=== PATIENT | male | born 1945 | race Caucasian/White ===

== ENCOUNTER 2017-01-16 13:14 | Inpatient (IN) | payer MEDICARE ==
[~2017-01-16] VITALS: Ht 172.7 cm; Wt 94.4 kg
[~2017-01-16 13:14] MED LIST: ACET650T26 PO; AMOX1TAB61 PO; CLIN300C8 PO; DIGO125T PO; GLIP-112 PO; GLIP10TA13 PO; HYDR25TA9 PO; IBUP400T18 PO; LISI40TA PO; METF10002 PO; METO50TA29 PO; NAPR220C4 PO; OXYC-327 PO; SIMV40TA3 PO; SITA25TA PO; SITA50TA PO; Sennosides/Docusate Sodium PO
[2017-01-16] MEDS ORDERED: LOSA100T6 PO (14:04)
[2017-01-16] MEDS ORDERED: ATOR20TA58 PO (14:05)
[2017-01-16] MEDS ORDERED: AMLO10TA2 PO (14:06)
[2017-01-16] MEDS ORDERED: CHOL100013 PO (14:06)
[2017-01-16] MEDS ORDERED: METO25TA4 PO (14:07)
[2017-01-16] MEDS ORDERED: FURO40TA4 PO (14:08)
[2017-01-16] MEDS ORDERED: POTA10TA10 PO (14:09)
[2017-01-16 14:21] VITALS: BP 154/65
[2017-01-16 14:48] VITALS: BP 154/65
[2017-01-16 16:19] LABS: HEMATOCRIT 34.2 % (39.0-53.0); HEMOGLOBIN 11.4 g/dL (13.0-17.5); RED BLOOD COUNT 3.7 x10^6/uL (4.30-5.70); RED CELL DISTRIBUTION WIDTH 14.9 % (11.5-14.5); WHITE BLOOD COUNT 7.1 x10^3/uL (4.0-11.0)
[2017-01-16 16:37] LABS: ALBUMIN 2.4 g/dL (3.4-5.0); ALBUMIN/GLOBULIN RATIO 0.6 (1.0-1.7); CALCIUM 8.6 mg/dL (8.5-10.1); CREATININE 1.5 mg/dL (0.7-1.3); GFR 46.3; POTASSIUM 4.4 mmol/L (3.5-5.1); TOTAL BILIRUBIN 0.4 mg/dL (0.2-1.0); TOTAL PROTEIN 6.1 g/dL (6.4-8.2)
[2017-01-16] MEDS ORDERED: VANCOMYCIN 2 GM in IV NORMAL SALINE 500ML 500 ML IV ONE (17:00)
[2017-01-16] MEDS: VANCOMYCIN PER PHARMACY MC PRN (17:39)
[2017-01-16] MEDS ORDERED: IOHEXOL 300 MG/ML 75 ML VIAL. IV ONE (18:15)
--- NOTE | 2017-01-16 19:11 | HP ---
ADMIT DATE: 01/16/2017 HISTORY OF PRESENT ILLNESS: The patient is a 71-year-old male patient who was admitted directly from his primary care physician's office with a complaint of pain and swelling of his right lower extremity. Pain is mostly in the posterior aspect of the right thigh and right knee, also complained of pain in his right knee joint, and given that he has had previous history of cellulitis and right knee infection, he was admitted and after obtaining appropriate cultures, we will start him on IV antibiotic. We will also arrange for him to have a CT scan of the right lower extremity and venous Doppler ultrasound to rule out the possibility of right lower extremity deep vein thrombosis. The patient himself denied any chills, rigors or fever. He has chronic bilateral venous stasis ulcers, but according to him, they are actually much better than before. PAST MEDICAL HISTORY: Significant for hypertension, type 2 diabetes, hyperlipidemia, chronic kidney disease, impaired liver enzymes, osteoarthritis, coronary artery disease. PAST SURGICAL HISTORY: Significant for coronary artery bypass graft surgery, right knee arthroscopic surgery x 2, right eye surgery x 4 with cataract extraction and intraocular lens implant. He has bilateral craniotomy with the evacuation of subdural hematoma, cholecystectomy, colonoscopy, and cystoscopy for investigation of hematuria. ALLERGIES: He is allergic to PENICILLIN. MEDICATIONS: He is currently on following medications: Acetaminophen 650 mg every 8 hours, amlodipine besylate 10 mg daily, atorvastatin calcium 20 mg at bedtime, cholecalciferol/vitamin D3 1000 International Units daily, furosemide 40 mg p.o. daily, glipizide 10 mg b.i.d., losartan potassium 100 mg daily, metoprolol tartrate 25 mg twice a day and potassium chloride 10 mEq once a day. FAMILY HISTORY: He has one older sister who is healthy. His father was killed. His mother at the age of 88 because of myocardial infarction. SOCIAL HISTORY: He is , has 2 sons and 1 daughter. He is an ex-smoker, quit about 4 years ago, smoked for more than 30 years, a pack a day. He drinks 2 drinks of alcohol every Sunday night. He used to work for [employer] for more than 30 years. He is currently retired. REVIEW OF SYSTEMS: The patient denied any blurring of vision, cataract, glaucoma or macular degeneration. Denied any earache, tinnitus or sensorineural deafness. Denied any nosebleeds, stuffy nose or postnasal drip. Denied any sore throat, sore tongue, toothache, hoarseness of voice or difficulty swallowing. Denied any nausea, vomiting, diarrhea or constipation. Denied any hematemesis, melena or hematochezia. Denied any dysuria, frequency or hematuria. Denied any chest pain, shortness of breath, orthopnea, paroxysmal nocturnal dyspnea. Denied any cough, phlegm or hemoptysis. Did complain of chills, but no fever, PHYSICAL EXAMINATION: GENERAL: When I examined him, he was sitting slightly propped up in bed, in no apparent respiratory distress, pale, but no jaundice, cyanosis or thyromegaly. No jugular venous distention. No lower limb edema. VITAL SIGNS: His heart rate was 68, blood pressure 154/65, temperature was 98.5, respiratory rate 20, and oxygen saturation was 97%. HEAD, EYES, EARS, NOSE AND THROAT: Showed normocephalic, atraumatic. NECK: Supple. HEART: Showed normal first and second heart sounds with no gallop, rub or murmur. CHEST: Clear to auscultation. No crepitation or rhonchi. ABDOMEN: Distended, soft, nontender. No guarding or rigidity. No organomegaly. Hernial orifices intact. Bowel sounds normal. NEUROLOGIC: He was awake, alert, responding appropriately. All cranial nerves intact. EXTREMITIES: He moves extremities without difficulty; however, he has chronic bilateral venous stasis on both sides. His right lower extremity is more swollen. He has marked tenderness in the posterior aspect of the right thigh and right knee joint with also marked tenderness and possible right knee effusion. PLAN: Admit the patient with right lower extremity possible cellulitis or an infected right knee joint as he has a history of that before. We will do blood cultures and as he is allergic to PENICILLIN, we will start him on vancomycin and meropenem and the pharmacy will adjust the dose as he is known to have chronic kidney disease. I will send blood for CBC, CMP, 2 sets of blood culture. We will do right lower extremity venous Doppler ultrasound as well as CT scan of the right lower extremity. Obviously, he has an abscess or infected right knee joint that needs to be drained. I will transfer him to [facility]. RJ GONG MD DR: Lia JOB#: [id number] / [id number]
[2017-01-16 19:52] VITALS: BP 177/66
[2017-01-16] MEDS ORDERED: IV NORMAL SALINE 100ML 100 ML ONE (20:13)
[2017-01-16] MEDS: ACETAMINOPHEN 325 MG TABLET PO PRN (20:43)
[2017-01-16] MEDS: ATORVASTATIN CALCIUM 20 MG TABLET PO SCH (20:43)
[2017-01-16] MEDS: glipiZIDE 10 MG TABLET PO SCH (20:43)
[2017-01-16] MEDS: METOPROLOL TART IMMED RELEASE 25 MG TABLET PO SCH (20:44)
[2017-01-16] MEDS: MEROPENEM 1 GM in IV NORMAL SALINE 100ML 100 ML IV SCH (21:00)
[2017-01-16 22:48] VITALS: BP 177/63
--- NOTE | 2017-01-16 23:50 | RAD ---
CT right lower extremity with contrast dated 01/16/2017. No comparison available. CLINICAL INDICATION: Edema and pain right leg laterally from mid thigh to above ankle. Drainage and skin sluffling. TECHNIQUE: Contiguous axial imaging of the right lower extremity performed following the intravenous administration of 60 cc Omnipaque 300. Thin cut coronal and sagittal reconstructions. One or more of the following individualized dose reduction techniques were utilized for this examination: 1. Automated exposure control 2. Adjustment of the mA and/or kV according to patient size 3. Use of iterative reconstruction technique. FINDINGS: There is extensive edema throughout the subcutaneous tissues of the mid to distal thigh and right calf. No soft tissue gas or well-formed fluid collection to suggest abscess. There is diffuse skin thickening. There is extensive calcific and soft plaque throughout the right lower extremity arterial tree. Evaluation for stenosis is limited based on technique. The common femoral artery is not well opacified and may be moderately narrowed. There is multifocal mild to moderate narrowing of the superficial femoral artery with possible high-grade stenosis distally near the adductor hiatus. No significant flow identified within the visualized calf arteries, could be artifactual or related to high-grade stenosis. There are extensive venous varicosities throughout the medial thigh and calf. There is generalized muscle atrophy. Small intramuscular lipoma involving the vastus intermedius muscle proximally. No acute bony abnormality. Mild to moderate tricompartmental DJD at the knee. IMPRESSION: 1. Extensive subcutaneous edema and parasagittal edema with skin thickening, nonspecific. This could be related to cellulitis. There is no evidence of underlying soft tissue gas or abscess. 2. Atherosclerotic changes of the right lower extremity arterial tree. Evaluation for stenosis is limited based on technique. There is no detectable flow within the calf arteries which could be technical or related to high-grade stenosis. Recommend correlation with ultrasound Doppler. 3. No acute bony abnormality. 4. Prominent venous varicosities Electronically signed by: Emmanuel Camacho MD (01/16/2017 11:47 PM) [facility]
[2017-01-17] MEDS ORDERED: IV NORMAL SALINE 100ML 100 ML ONE (04:22)
[2017-01-17] MEDS: MEROPENEM 1 GM in IV NORMAL SALINE 100ML 100 ML IV SCH ×3 (05:22→21:02)
[2017-01-17] MEDS: ACETAMINOPHEN 325 MG TABLET PO PRN ×2 (05:43→21:01)
[2017-01-17 06:03] VITALS: BP 158/77
[2017-01-17 06:23] LABS: BASO % 0 % (0-3); EOS # 0.1 x10^3/uL (0.0-0.7); EOS % 2 % (0-3); HEMATOCRIT 31.2 % (39.0-53.0); HEMOGLOBIN 10.4 g/dL (13.0-17.5); LYMPH # 0.6 x10^3/uL (1.0-4.8); LYMPH % 10 % (24-48); MEAN CORPUSCULAR HEMOGLOBIN 31 pg (25-35); MEAN CORPUSCULAR HGB CONC 33 g/dL (31-37); MEAN CORPUSCULAR VOLUME 92 fL (79-100); MONO # 0.4 x10^3/uL (0.0-1.1); MONO % 6 % (0-9); NEUT # 4.8 x10^3uL (1.8-7.7); NEUT % 82 % (31-73); PLATELET COUNT 156 x10^3/uL (140-400); RED BLOOD COUNT 3.39 x10^6/uL (4.30-5.70); WHITE BLOOD COUNT 5.8 x10^3/uL (4.0-11.0)
[2017-01-17 06:41] LABS: ALBUMIN 2.2 g/dL (3.4-5.0); ALBUMIN/GLOBULIN RATIO 0.6 (1.0-1.7); C REACTIVE PROTEIN 97.2 mg/L (0-3.3); CALCIUM 8.2 mg/dL (8.5-10.1); CREATININE 1.4 mg/dL (0.7-1.3); GFR 50.1; POTASSIUM 4.3 mmol/L (3.5-5.1); TOTAL BILIRUBIN 0.4 mg/dL (0.2-1.0); TOTAL PROTEIN 5.8 g/dL (6.4-8.2)
--- NOTE | 2017-01-17 07:19 | RAD ---
Right lower extremity venous ultrasound, 01/16/2017 : History: Right leg swelling Duplex evaluation including grayscale, color flow and spectral Doppler analysis was performed. The femoral and popliteal veins show no filling defects to suggest DVT. The visualized deep veins in the right calf are unremarkable. Incidental note is made of moderate subcutaneous edema, most prominent laterally in the thigh, extending into the calf. IMPRESSION: There is no sonographic evidence of deep vein thrombosis in the right lower extremity
[2017-01-17 08:10] LABS: SEDIMENTATION RATE 67 (0-15)
[2017-01-17] MEDS: glipiZIDE 10 MG TABLET PO SCH ×2 (08:51→21:01)
[2017-01-17] MEDS: CHOLECALCIFEROL (VITAMIN D3) 1,000 UNIT TABLET PO SCH (08:51)
[2017-01-17] MEDS: FUROSEMIDE 40 MG TABLET PO SCH (08:51)
[2017-01-17] MEDS: amLODIPine BESYLATE 10 MG TABLET PO SCH (08:52)
[2017-01-17] MEDS: METOPROLOL TART IMMED RELEASE 25 MG TABLET PO SCH ×2 (08:53→21:00)
[2017-01-17] MEDS: LOSARTAN 50 MG TABLET. PO SCH (08:53)
[2017-01-17] MEDS: POTASSIUM CHLORIDE 10 MEQ TABLET.ER. PO SCH ×2 (08:54→17:13)
[2017-01-17 10:12] VITALS: BP 161/61
[2017-01-17] MEDS: VANCOMYCIN 1.5 GM in IV NORMAL SALINE 500ML 500 ML IV SCH (17:14)
[2017-01-17 17:46] VITALS: BP 169/62
[2017-01-17 20:59] VITALS: BP 164/84
[2017-01-17] MEDS: ATORVASTATIN CALCIUM 20 MG TABLET PO SCH (21:01)
[2017-01-17 22:52] VITALS: BP 154/84
--- NOTE | 2017-01-18 04:09 | PN ---
DATE: 01/17/2017 SUBJECTIVE: The patient is resting, slightly propped up in bed, in no apparent respiratory distress. He denied any chills, rigors or fever. He continued to have pain, swelling, tenderness in the posterior aspect of the right thigh and posterior aspect of the right knee. We did venous Doppler ultrasound of his right lower extremity, which showed no sonographic evidence of deep vein thrombosis. CT scan of the right lower extremity showed that his extensive subcutaneous edema and edema with skin thickening is nonspecific. This could be related to cellulitis. There is no evidence of underlying soft tissue gas or abscess. Atherosclerotic changes of the right lower extremity, arterial tree evaluation for stenosis is limited based on technique. There is no detectable flow within the calf arteries, which could be technical or related to high-grade stenosis, recommended correlation with ultrasound Doppler. There is no acute bony abnormalities. He has prominent venous varicosities. PHYSICAL EXAMINATION: GENERAL: When I examined him this afternoon, he looked well and was clearly in no apparent respiratory distress, pale, but no jaundice, cyanosis, or thyromegaly. No jugular distention, but bilateral lower limb edema, more so on the right side. VITAL SIGNS: His heart rate was 69, blood pressure 161/61, temperature was 98, respiratory rate 20, and oxygen saturation was 93%. HEAD, EYES, EARS, NOSE AND THROAT: Showed normocephalic, atraumatic. NECK: Supple. HEART: Showed normal first and second heart sounds with no gallop, rub or murmur. CHEST: Shows central trachea, equal bilateral chest expansion, air entry, vesicular sounds, no crepitation or rhonchi. ABDOMEN: Distended, soft, nontender. No guarding or rigidity. No organomegaly. Hernial orifices intact. Bowel sounds normal. NEUROLOGIC: He was awake, alert, responding appropriately. Cranial nerves intact. He moves extremities without difficulty, ambulates without assistance or assistive devices. EXTREMITIES: Examination of both lower extremities shows marked erythema and chronic venous stasis. The right leg continued to be more swollen with marked tenderness and swelling, induration in posterior aspect of the right thigh and posterior aspect of the right knee joint and calf muscles. His intake over the last 24 hours was 3250, output was 400. LABORATORY DATA: Showed a white cell count 5800, hemoglobin 10.4, hematocrit 31, MCV 92, and platelet count of 156,000 with normal manual differential. Serum sodium was 140, potassium 4.3, chloride 110, bicarbonate 26, anion gap of 4, BUN 25, creatinine 1.4. Estimated GFR was 50 mL per minute. His glucose 137. Calcium was 8.2. Total bilirubin is normal. AST, ALT, alkaline phosphatase were normal. His sed rate was 67 mL per hour and C-reactive protein was 97.2 mg/dL. His total protein was 5.8, albumin 2.2. ASSESSMENT: In summary, this is a 71-year-old male patient with 1. Right lower extremity cellulitis. 2. Chronic venous stasis. 3. Chronic kidney disease. 4. Hypertension, seems to be reasonably controlled. 5. Type 2 diabetes mellitus. 6. Impaired liver enzymes. 7. Osteoarthritis. 8. Coronary artery disease. 9. Peripheral arterial disease. PLAN: My plan is to continue with IV antibiotic in the form of vancomycin as well as meropenem. I will arrange for him to have arterial Doppler ultrasound of the right lower extremity and decide on further management accordingly. RJ GONG MD DR: AIDAN/jaime JOB#: [id number] / [id number]
[2017-01-18] MEDS ORDERED: IBUPROFEN 600 MG TABLET. PO PRN (05:30)
[2017-01-18] MEDS: MEROPENEM 1 GM in IV NORMAL SALINE 100ML 100 ML IV SCH ×2 (05:40→14:00)
[2017-01-18 05:52] VITALS: BP 159/77
[2017-01-18] MEDS ORDERED: IV NORMAL SALINE 250ML 250 ML ONE ×2 (06:02→13:49)
[2017-01-18 06:42] LABS: CALCIUM 8.3 mg/dL (8.5-10.1); CREATININE 1.1 mg/dL (0.7-1.3); GFR 66.2; POTASSIUM 4.2 mmol/L (3.5-5.1)
[2017-01-18] MEDS: FUROSEMIDE 40 MG TABLET PO SCH (08:06)
[2017-01-18] MEDS: POTASSIUM CHLORIDE 10 MEQ TABLET.ER. PO SCH ×2 (08:06→17:00)
[2017-01-18] MEDS: LOSARTAN 50 MG TABLET. PO SCH (08:07)
[2017-01-18] MEDS: amLODIPine BESYLATE 10 MG TABLET PO SCH (08:07)
[2017-01-18] MEDS: CHOLECALCIFEROL (VITAMIN D3) 1,000 UNIT TABLET PO SCH (08:07)
[2017-01-18] MEDS: METOPROLOL TART IMMED RELEASE 25 MG TABLET PO SCH (08:07)
[2017-01-18] MEDS: glipiZIDE 10 MG TABLET PO SCH (08:07)
--- NOTE | 2017-01-18 09:19 | RAD ---
Examination: Ultrasound right lower extremity arterial duplex History: History of calcified arteries, atherosclerosis, diabetes, hypertension, prior history of smoking Comparison: None available Technique: Grayscale, color Doppler 2-D, spectral waveform analysis of the right lower extremity arterial system was performed. Findings: The velocity in the common femoral artery is 122 cm/s, triphasic waveform. Deep femoral artery 85 cm/s, biphasic. Proximal superficial femoral artery 128 cm/s, triphasic. Mid superficial femoral artery 159 cm/s, triphasic. Distal superficial femoral artery 176 cm/s, triphasic. Popliteal artery-4 cm/s, triphasic. Proximal [employer] 72 cm/s, monophasic. Distal [employer] 54 cm/s, biphasic. Peroneal artery was difficult to visualize. Anterior tibialis artery is 62 cm/s biphasic. Dorsalis pedis artery 62 cm/s, biphasic. Examination was technically difficult given swelling in the lower leg. Diffuse atherosclerotic plaque identified throughout the visualized right lower extremity arterial system. Impression: Diffuse atherosclerosis of the visualized right lower extremity arterial system without obvious high-grade stenosis visualized. Examination is limited.
[2017-01-18 11:01] VITALS: BP 167/76
[2017-01-18] MEDS ORDERED: CEFD300C PO (14:50)
[2017-01-18 16:05] VITALS: BP 168/76
[2017-01-18 16:30] LABS: VANC TR 13.3 mcg/mL (10.0-20.0)
[2017-01-18] MEDS: VANCOMYCIN 1.5 GM in IV NORMAL SALINE 500ML 500 ML IV SCH (16:55)
[2017-01-18] MEDS: VANCOMYCIN PER PHARMACY MC PRN (17:09)
--- NOTE | 2017-01-18 22:08 | DS ---
DATE OF DISCHARGE: 01/18/2017 HOSPITAL COURSE: The patient is a 71-year-old male patient who was admitted directly from his primary care physician's office with a complaint of pain and swelling of his right lower extremity. The pain is mostly in the posterior and outer aspect of the right thigh and right knee joint. He complained also of pain in his right knee joint and was admitted with diagnosis of cellulitis. Has had a Doppler ultrasound, which was negative for DVT and CT scan of the right lower extremity showed soft tissue swelling, but no definite abscess. He was started on IV meropenem and vancomycin and did well and has been afebrile, hemodynamically stable, normal white cell count. His blood cultures have remained so far negative and in discussion with Dr. Rainey, a decision was made to discharge him home to continue on oral Omnicef, for cefdinir 300 mg twice a day for 10 days and for him to follow with the Infectious Disease group either Dr. Lyons or Dr. Rainey in 1 week's time. PHYSICAL EXAMINATION: GENERAL: When I examined him this afternoon, he looked well and was clearly in no apparent respiratory distress, pale, but no jaundice, cyanosis, or thyromegaly. No jugular distention, but mild bilateral limb edema, which improved. VITAL SIGNS: Her heart rate was 59, blood pressure was 167/76, temperature was 98, respiratory rate was 20, and oxygen saturation was 93%. HEAD, EYES, EARS, NOSE AND THROAT: Showed normocephalic, atraumatic. NECK: Supple. HEART: Showed normal first and second heart sounds with no gallop, rub or murmur. CHEST: Clear to auscultation. No crepitation or rhonchi. ABDOMEN: Distended, soft, nontender. NEUROLOGIC: He was awake, alert, responding appropriately. Cranial nerves intact. He moves extremities without difficulty, ambulates without assistance or assistive devices. He has chronic venous stasis on both sides, more so on the right. There was also redness and swelling and tenderness especially on the outer posterior aspect of the right thigh that has largely subsided. Venous Doppler ultrasound was negative for DVT and CT scan of the right lower extremity showed no evidence of abscess formation and did show extensive subcutaneous edema and parasagittal edema with skin thickening that is nonspecific. This could be related to cellulitis. There is no evidence of underlying soft tissue gas or abscess. LABORATORY DATA: His lab work this morning showed that his white cell count was 5800, hemoglobin 10, hematocrit 31, MCV 92, and platelet count 156,000. Serum sodium was 141, potassium 4.2, chloride 109, bicarbonate 25, anion gap of 7, BUN 19, creatinine 1.1, estimated GFR was 66 mL per minute. His glucose was 150. Calcium was 8.3. Total bilirubin is normal; however, AST, ALT, alkaline phosphatase are all elevated. His white cell count was 5800. His total protein was 5.8, albumin was 2.2. DISCHARGE MEDICATIONS: He was discharged home to continue on following medications: Cefdinir 300 mg p.o. b.i.d. for 10 days, acetaminophen 650 mg p.o. 8 hourly, amlodipine 10 mg once a day, atorvastatin 20 mg at bedtime, cholecalciferol, vitamin D 1000 units 1 capsule once a day, furosemide 40 mg daily, glipizide 10 mg twice a day, losartan potassium 100 mg daily, metoprolol tartrate 25 mg daily, potassium chloride 10 mEq twice a day. FINAL DISCHARGE DIAGNOSES: 1. Cellulitis of right lower extremity. 2. Acute kidney injury, resolved. His creatinine is down to 1.1 from 1.5. 3. Other medical problems including hypertension, type 2 diabetes mellitus, hyperlipidemia, chronic kidney disease, impaired liver enzymes, osteoarthritis, coronary artery disease, severe peripheral vascular disease. RJ GONG MD DR: AIDAN/jaime JOB#: [id number] / [id number]
--- NOTE | 2017-01-19 04:51 | PN ---
DATE: 01/18/2017 SUBJECTIVE: The patient is resting slightly propped up in bed, in no apparent distress. He continued to complain of some pain on the outer aspect of the right thigh, although the modest swelling and redness has largely subsided. PHYSICAL EXAMINATION: GENERAL: When I examined him, he looked pale, but no jaundice, cyanosis or thyromegaly. No jugular distention. No lower limb edema. VITAL SIGNS: His heart rate was 59, blood pressure was 167/76, temperature was 98, respiratory rate was 20, and oxygen saturation was 93% on room air. HEAD, EYES, EARS, NOSE AND THROAT: Showed normocephalic, atraumatic. NECK: Supple. HEART: Showed normal first and second heart sounds with no gallop, rub or murmur. CHEST: Clear to auscultation. No crepitation or rhonchi. ABDOMEN: Distended, soft, nontender. No guarding or rigidity. No organomegaly. Hernial orifices intact. Bowel sounds normal. NEUROLOGIC: He was awake, alert, responding appropriately. Cranial nerves intact. He moves extremities without difficulty. He ambulates without assistance of assistive devices. The swelling and erythema of his right lower extremity has largely subsided, although he continued to have some tenderness and induration on the outer aspect of the right thigh. His intake was 2370, output was 700. LABORATORY DATA: His lab work this morning showed a white cell count 5800, hemoglobin 10, hematocrit 31, MCV 92, and platelet count of 156,000. His chemistry showed a serum sodium 141, potassium 4.2, chloride 109, bicarbonate 25, anion gap of 7, BUN 19, creatinine 1.1, estimated GFR was 66 mL per minute, his glucose 150, calcium was 8.3. ASSESSMENT: 1. Right lower extremity cellulitis, resolving. 2. Chronic bilateral venous stasis. 3. Chronic kidney disease. 4. Acute kidney injury, resolving. His BUN and creatinine is down to 19 and 1.1 from 32 and 1.5. 5. Hypertension, reasonably controlled. 6. Type 2 diabetes mellitus, reasonably controlled. 7. Chronic transaminitis. 8. Osteoarthritis. 9. Coronary artery disease. 10. Peripheral arterial disease. PLAN: To continue with IV antibiotic. We will discharge him tomorrow to continue on Omnicef 300 mg twice a day and we will follow with [facility], Dr. Hernandez and decide in 1 week's time. RJ GONG MD DR: AIDAN/jaime JOB#: [id number] / [id number]
== END 2017-01-18 19:16 | disposition home or self-care (01) | DRG 602 ==
LOC: 1 SOUTH 13:17 → OBSVTOIN 15:46
PROVIDERS: ADMIT Internal Medicine; ATTEND Internal Medicine
DX: L03.115 Cellulitis of right lower limb (principal); E43 Unspecified severe protein-calorie malnutrition; N17.0 Acute kidney failure with tubular necrosis; E11.22 Type 2 diabetes mellitus with diabetic chronic kidney disease; I73.9 Peripheral vascular disease, unspecified; E78.5 Hyperlipidemia, unspecified; I83.018 Varicose veins of right lower extremity with ulcer other part of lower leg; I83.028 Varicose veins of left lower extremity with ulcer other part of lower leg; I12.9 Hypertensive chronic kidney disease with stage 1 through stage 4 chronic kidney disease, or unspecified chronic kidney disease; I25.10 Atherosclerotic heart disease of native coronary artery without angina pectoris; M19.90 Unspecified osteoarthritis, unspecified site; N18.9 Chronic kidney disease, unspecified; Z96.1 Presence of intraocular lens; Z82.49 Family history of ischemic heart disease and other diseases of the circulatory system; Z87.891 Personal history of nicotine dependence; Z95.1 Presence of aortocoronary bypass graft; Z98.41 Cataract extraction status, right eye; Z90.49 Acquired absence of other specified parts of digestive tract; Z88.0 Allergy status to penicillin
CPT/HCPCS: 36415; 73701; 80048; 80053; 80202; 85025; 85027; 85651; 86140; 87040; 93926; 93971; G0378; G0379; J2185; J3370; J7040; J7050; Q9967

== ENCOUNTER → 2018-03-14 | Outpatient (CLI) | payer MEDICARE ==
[~2018-03-14] MED LIST changes: +AMLO10TA6 PO; +ATOR20TA58 PO; +CEFD300C PO; +CHOL100013 PO; +FURO40TA4 PO; +LOSA100T7 PO; -METF10002 PO; +METF10007 PO; +METO25TA4 PO; +POTA10TA10 PO
--- NOTE | 2018-03-14 09:27 | RAD ---
AP and Lateral Views of the Chest 03/14/2018 10:11 AM Indication: COUGHING UP BLOOD FOR A FEW WEEKS Comparison: Chest radiograph July 05, 2016 Findings: There is a dual-lead pacemaking device from a left subclavian approach. Prior median sternotomy noted. No pneumothorax is identified. There is blunting of the bilateral costophrenic angles left greater than right which may represent small effusion or atelectasis. Mild streaky opacity in the left lung base could represent atelectasis or pneumonia. No acute osseous changes are seen. IMPRESSION: 1. Blunting of the bilateral costophrenic angles possibly representing small effusions, or atelectasis 2. Mild streaky opacity in the left lower lobe. Pneumonia not excluded. Recommend imaging follow-up to ensure complete resolution Electronically signed by: Niall Sanchez MD (03/14/2018 9:24 AM) [facility]
== END | disposition home or self-care (01) ==
LOC: PMG 08:45
PROVIDERS: ATTEND Physician Assistant
DX: R04.2 Hemoptysis (principal); Z95.0 Presence of cardiac pacemaker; Z87.891 Personal history of nicotine dependence
CPT/HCPCS: 71046

== ENCOUNTER → 2018-03-23 | Outpatient (CLI) | payer MEDICARE ==
[~2018-03-23] MED LIST changes: -GLIP-112 PO; +GLIP10TA24 PO
--- NOTE | 2018-03-23 09:49 | RAD ---
EXAM: PA and Lateral Views of the Chest DATE: 03/23/2018 9:37 AM INDICATION: Cough with pneumonia x 1 week COMPARISON: 03/14/2018, 07/05/2016 FINDINGS/ IMPRESSION: Heart is not enlarged. Aorta is tortuous. Cardiac generator pack obscures a portion left chest with leads in stable position. Mediastinal and hilar contours are stable. Surgical clips are seen in the mediastinum, likely from prior CABG. Left lung base parenchymal opacity likely atelectasis. Small left pleural effusion versus pleural thickening. No pneumothorax. Electronically signed by: Christopher Hobson MD (03/23/2018 9:46 AM) [facility]
== END | disposition home or self-care (01) ==
LOC: RAD 09:09
PROVIDERS: ATTEND Physician Assistant
DX: J18.1 Lobar pneumonia, unspecified organism (principal); Z95.1 Presence of aortocoronary bypass graft
CPT/HCPCS: 71046

== ENCOUNTER 2018-05-08 12:25 | Emergency (ER) | payer MEDICARE ==
[~2018-05-08] VITALS: Ht 172.7 cm; Wt 111.6 kg
[~2018-05-08 12:25] MED LIST changes: -DIGO125T PO; +DIGO125T17 PO; +HYDR-2145 PO; -HYDR25TA9 PO; +LOSA100T14 PO; -LOSA100T7 PO; -OXYC-327 PO; +OXYC1TAB19 PO
[2018-05-08] MEDS ORDERED: FUROSEMIDE 40 MG/4 ML VIAL ONE (12:35)
--- NOTE | 2018-05-08 12:44 | RAD ---
EXAM: Chest, single view. HISTORY: Shortness of breath. COMPARISON: None. FINDINGS: A frontal view the chest is obtained. There is multifocal interstitial infiltrate. There are small bilateral pleural effusions. There is no pneumothorax. The heart is normal in size. There is evidence of prior CABG. There is a cardiac pacemaker with leads overlying expected position. IMPRESSION: Multifocal interstitial infiltrate and small pleural effusions. Electronically signed by: Samaria Bueno MD (05/08/2018 12:40 PM) [place] [id number]
[2018-05-08] MEDS ORDERED: ASPIRIN 81 MG TAB.CHEW PO ONE (12:45)
[2018-05-08] MEDS ORDERED: HEPARIN for IV BOLUS 10,000 UNIT/10 ML VIAL. IV PRN ×2 (12:45)
[2018-05-08 12:48] LABS: BASO % 1 % (0-3); EOS # 0.2 x10^3/uL (0.0-0.7); EOS % 3 % (0-3); HEMATOCRIT 40.1 % (39.0-53.0); HEMOGLOBIN 12.4 g/dL (13.0-17.5); LYMPH # 1.4 x10^3/uL (1.0-4.8); LYMPH % 17 % (24-48); MEAN CORPUSCULAR HEMOGLOBIN 30 pg (25-35); MEAN CORPUSCULAR HGB CONC 31 g/dL (31-37); MEAN CORPUSCULAR VOLUME 96 fL (79-100); MONO # 0.4 x10^3/uL (0.0-1.1); MONO % 5 % (0-9); NEUT # 5.9 x10^3uL (1.8-7.7); NEUT % 75 % (31-73); PLATELET COUNT 329 x10^3/uL (140-400); RED BLOOD COUNT 4.17 x10^6/uL (4.30-5.70); RED CELL DISTRIBUTION WIDTH 15.9 % (11.5-14.5); WHITE BLOOD COUNT 7.9 x10^3/uL (4.0-11.0)
[2018-05-08] MEDS ORDERED: HEPARIN 25,000UTS/500ML PREMIX 500 ML IV ONE (12:48)
[2018-05-08 12:55] VITALS: BP 158/81
[2018-05-08 12:56] LABS: ALBUMIN 3.5 g/dL (3.4-5.0); ALBUMIN/GLOBULIN RATIO 0.8 (1.0-1.7); CALCIUM 8.7 mg/dL (8.5-10.1); CREATININE 2.2 mg/dL (0.7-1.3); GFR 29.7; POTASSIUM 5.6 mmol/L (3.5-5.1); TOTAL BILIRUBIN 0.4 mg/dL (0.2-1.0); TOTAL PROTEIN 7.7 g/dL (6.4-8.2)
[2018-05-08] MEDS ORDERED: HEPARIN for IV BOLUS 10,000 UNIT/10 ML VIAL. IV ONE (13:00)
--- NOTE | 2018-05-08 13:03 | ED.ADGEN ---
Adult General Chief Complaint Chief Complaint Chest heaviness, shortness of air HPI HPI Patient is a 72-year-old male with history of CAD, STEMI with acute onset shortness breath, which substernal chest heaviness pain radiating to his back and hypoxia with O2 saturation in low 80s and bipedal edema. Symptom onset was 2 hours prior to ED arrival. Patient arrives by POV was brought immediately back to the critical care treatment room. On exam, patient is pale, diaphoretic , tachypnea with shallow respirations with coarse breath sounds throughout lung m[place].. He is visibly anxious. Blood pressure is 180/90. Patient immediately placed on oxygen and transitioned to BiPAP. EKG shows left bundle-branch block with ST elevation with peaked T waves in inferior lateral leads. No comparison EKG available. STEMI protocol activated. Cardiology paged. Dr. Betancur accepts to [facility] ED for expeditious transfer to engineering lab technician.[] Review of Systems Review of Systems ROS as per HPI All other systems were reviewed and found to be within normal limits, except as documented in this note. Current Medications Current Medications Current Medications Medications (Trade) Dose Ordered Sig/Nahomy Start Time Stop Time Status Last Admin Dose Admin Aspirin (Children'S Aspirin) 324 mg 1X ONCE 05/08/18 12:45 05/08/18 12:46 DC 05/08/18 12:34 324 MG Furosemide (Lasix) 40 mg 1X ONCE 05/08/18 13:15 05/08/18 13:16 05/08/18 12:46 40 MG Heparin Sodium (Porcine) (Heparin Sodium) 1,000 unit PRN Q6HRS PRN 05/08/18 12:45 Allergies Allergies Allergies Coded Allergies Type Severity Reaction Last Updated Verified Penicillins Allergy Unknown 05/08/18 Yes Physical Exam Physical Exam Constitutional: Anxious, Diaphoretic, moderate respiratory distress.[] HENT: Normocephalic, atraumatic, bilateral external ears normal, oropharynx moist, nose normal. [] Eyes: PERRLA, EOMI, conjunctiva normal. [] Neck: Normal range of motion, jvd. Bipedal edema[] Cardiovascular:Heart rate regular rhythm, no murmur [] Lungs & Thorax: Tachypnea, shallow respirations, coarse rales throughout lung [place][] Abdomen: Bowel sounds normal, soft, no tenderness. [] Skin: Diaphoretic[] Back: No tenderness. [] Extremities: Bipedal edema. [] Neurologic: Alert and oriented X 3, normal motor function, normal sensory function, no focal deficits noted. [] Psychologic: Affect, anxious. [] EKG EKG EKG: Sinus rhythm vs paced rhythm, left bundle branch block, ST segment elevation in inferior lateral leads with peaked T waves.[] Radiology/Procedures Radiology/Procedures [Chest x-ray: Cardiomegaly with pulmonary edema.] Course & Med Decision Making Course & Med Decision Making Pertinent Labs and Imaging studies reviewed. (See chart for details) [STEMI protocol activation. Bipap, lasix, asa, fentanyl and heparin given. Morales placed. VS improved. Lab pending prior to transfer.] Final Impression Final Impression [1. Inferior STEMI 2. Acute respiratory failure with hypoxia 3. Acute congestive heart failure] Dragon Disclaimer Dragon Disclaimer This electronic medical record was generated, in whole or in part, using a voice recognition dictation system. AMPARO DAILEY DO May 08, 2018 13:03
[2018-05-08] MEDS ORDERED: FUROSEMIDE 40 MG/4 ML VIAL IVP ONE (13:15)
[2018-05-08] MEDS ORDERED: HEPARIN 25,000UTS/500ML PREMIX 500 ML IV PRN (13:30)
--- NOTE | 2018-05-08 18:16 | EKG ---
[address] [address] Test Date: 2018-05-08 Test Time: 12:24:02 Pat Name: DESHAWN BANUELOS Department: Room: Gender: M [employer]: DONTE : 1945 Requested By: AMPARO DAILEY Order Number: [id number] Reading MD: Measurements Intervals [place] Rate: 86 P: -90 PA: 230 QRS: -71 QRSD: 192 T: 118 QT: 384 QTc: 463 Interpretive Statements SINUS RHYTHM PROLONGED PA INTERVAL ABNORMAL LEFT AXIS DEVIATION NON SPECIFIC INTRAVENTRICULAR BLOCK QRS(T) CONTOUR ABNORMALITY CONSISTENT WITH ANTERIOR INFARCT POSSIBLY RECENT CONSISTENT WITH INFEROLATERAL INFARCT PROBABLY OLD ABNORMAL ECG RI6.01 Unconfirmed report No previous ECG available for comparison
== END 2018-05-08 12:50 | disposition short-term general hospital (02) ==
LOC: MERGE 12:25 → ER 12:25
DX: I21.19 ST elevation (STEMI) myocardial infarction involving other coronary artery of inferior wall (principal); J96.01 Acute respiratory failure with hypoxia; I50.9 Heart failure, unspecified; Z88.0 Allergy status to penicillin
CPT/HCPCS: 36415; 51702; 71045; 80053; 82947; 83880; 84484; 85025; 85610; 85730; 93005; 94660; 96374; 96375; 99285; J1644; J1940; J3010

== ENCOUNTER 2021-01-26 01:36 | Emergency (ER) | payer MEDICARE, OTHER ==
[~2021-01-26] VITALS: Ht 172.7 cm; Wt 102.5 kg
[~2021-01-26 01:36] MED LIST changes: +AMLO-187 PO; -AMLO10TA6 PO; -CLIN300C8 PO; +CLIN300C9 PO; -LISI40TA PO; +LISI40TA6 PO; +SIMV40TA18 PO; -SIMV40TA3 PO
[2021-01-26] MEDS ORDERED: NEOMY/BACITR/POLYMYXIN OINT PACKET. TP ONE (01:45)
[2021-01-26] MEDS ORDERED: MORPHINE SULFATE 4 MG/ML DISP.SYRIN. IV ONE (02:00)
--- NOTE | 2021-01-26 02:19 | PHYS DOC ---
Past History Past Medical History: CAD, CHF, COPD, Diabetes, DVT, Hypertension, OR, Pneumonia, Renal Failure, Other Past Surgical History: Coronary Bypass Surgery, Pacemaker Additional Past Surgical Histo: 3 cardiac stents Smoking: Quit Greater Than 1 Year Alcohol Use: Rarely Drug Use: None General Adult EDM: Chief Complaint: MECHANICAL FALL HPI: HPI: 75-year-old male presents via EMS with report of left lower extremity swelling and pain after mechanical slip and fall while letting the dog out a few hours ago. Patient does report use of Eliquis. Patient denies any numbness or tingling. Denies head injury or neck pain. EMS reports giving 100 mcg of fentanyl with limited improvement of symptoms. EMS reports a small abrasion to anterior aspect of tibia with bleeding controlled. Patient reports last tetanus less than 5 years ago. Review of Systems: Review of Systems: Constitutional: Denies fever or chills Eyes: Denies redness or eye pain HENT: Denies nasal congestion or sore throat Respiratory: Denies cough or shortness of breath Cardiovascular: Denies chest pain or palpitations GI: Denies abdominal pain, nausea, or vomiting : Denies dysuria or hematuria Musculoskeletal: Denies back pain; reports left lower extremity pain and swelling Integument: Denies rash; reports small abrasion/puncture wound to anterior tibia Neurologic: Denies headache, focal weakness or sensory changes Complete systems were reviewed and found to be within normal limits, except as documented in this note. Current Medications: Current Meds: Current Medications Medications (Trade) Dose Ordered Sig/Anhomy Start Time Stop Time Status Last Admin Dose Admin Morphine Sulfate (Morphine 4mg Syringe) 4 mg 1X ONCE 01/26/21 02:00 01/26/21 02:01 DC 01/26/21 02:00 4 MG Neomycin/ Polymyxin/ Bacitracin (Triple Antibiotic Ointment) 1 pkt 1X ONCE 01/26/21 01:45 01/26/21 01:47 DC 01/26/21 01:59 1 PKT Allergies: Allergies: Allergies Coded Allergies Type Severity Reaction Last Updated Verified Penicillins Allergy Intermediate Rash 09/29/20 Yes Physical Exam: PE: Constitutional: Well developed, well nourished, no acute distress, non-toxic appearance HENT: Normocephalic, atraumatic Eyes: PERRL, EOMI, conjunctiva normal, no discharge, no nystagmus Neck: Normal range of motion, no tenderness, supple Lungs & Thorax: No respiratory distress, equal chest rise and fall Abdomen: Soft, no tenderness; pelvis stable and nontender Skin: Warm, dry, no erythema, chronic venous stasis noted to bilateral lower extremities, small anterior left lower extremity pretibial abrasion Extremities: Left lower extremity lateral mid fibular tenderness and swelling consistent for hematoma, ROM intact but with some discomfort, PT and DP +2, foot warmth equal bilaterally Neurologic: Alert and oriented X 3, normal motor function, normal sensory function, no focal deficits noted Psychologic: Affect normal, judgment normal EKG: EKG: [] Radiology/Procedures: Radiology/Procedures: PROCEDURE: TIBIA FIBULA LEFT EXAM: LEFT TIBIA/FIBULA 2 VIEWS. HISTORY: Trauma, pain and swelling. COMPARISON: None. FINDINGS: Marked swelling along the lateral/anterior aspect of the proximal calf consistent with a hematoma spanning 23 x 6 cm. No fractures are identified. There is mild lateral compartmental predominant osteoarthritis at the knee. Joint spaces and alignment of the ankle mortise are grossly preserved. There are small plantar and posterior calcaneal spurs. Atherosclerotic calcifications are noted. IMPRESSION: 1. Findings consistent with a large hematoma along the lateral/anterior calf. Electronically signed by: Desiree Banks MD (01/26/2021 6:08 AM) [facility] Heart Score: C/O Chest Pain: N/A Course & Med Decision Making: Course & Med Decision Making Pertinent Imaging studies reviewed. (See chart for details) Patient presents with mechanical slip and fall with left lower extremity injury. Patient does take Eliquis. Physical exam consistent for hematoma. Pain addressed. Patient does have pulses, equal warmth, and denies paresthesias. Does not appear to have compartment syndrome at this time. X-ray obtained without fracture or dislocation. Pain addressed. Wound cleaned and dressed. Tetanus up-to-date. Dimitris bandage applied. Ice pack applied. Crutches provided for rest. Patient stable for discharge with outpatient follow-up with PCP. Discussed findings and plan with patient, who acknowledges understanding and agreement. Kori Disclaimer: Kori Disclaimer: This electronic medical record was generated, in whole or in part, using a voice recognition dictation system. Splinting Splinting : Location: Left lower extremity Pre-Made Type: Dimitris bandage Pre-Proc Neuro Vasc Exam: normal Post-Proc Neuro Vasc Exam: normal, unchanged from pre-exam Departure Departure: Impression: Primary Impression: Hematoma of left lower extremity Qualified Codes: S80.12XA - Contusion of left lower leg, initial encounter Additional Impression: Abrasion Disposition: HOME / SELF CARE / HOMELESS Condition: STABLE Referrals: ADOLFO HOLLIDAY (PCP) TRI KHAN MD Patient Instructions: Abrasion, [id number], Compartment Syndrome, Crutch Use, [id number], Elastic Bandage and RICE, Hematoma, [id number] Additional Instructions: ICE area of discomfort 20 min on then leave off next 20 mins. Repeat several times daily as needed for next few days. Do not soak your wound. You may shower. Clean wound daily with soap and water. Change dressing 2 times daily. Use over the counter antibiotic ointment with each dressing change. Scripts Oxycodone Hcl/Acetaminophen (PERCOCET 5-325 MG TABLET ) 1 Each Tablet 0.5-1 TAB PO PRN Q6HRS PRN for PAIN, #14 TAB Prov: LUCILLE SIMMS DO 01/26/21 LUCILLE SIMMS DO Jan 26, 2021 02:19
[2021-01-26] MEDS ORDERED: oxyCODONE/APAP 5/325 1 TAB TABLET PO ONE (02:45)
[2021-01-26] MEDS ORDERED: OXYC1TAB15 PO (02:46)
[2021-01-26 03:05] VITALS: BP 110/72
--- NOTE | 2021-01-26 06:11 | RAD ---
EXAM: LEFT TIBIA/FIBULA 2 VIEWS. HISTORY: Trauma, pain and swelling. COMPARISON: None. FINDINGS: Marked swelling along the lateral/anterior aspect of the proximal calf consistent with a he matoma spanning 23 x 6 cm. No fractures are identified. There is mild lateral compartmental predomina nt osteoarthritis at the knee. Joint spaces and alignment of the ankle mortise are grossly preserved. There are small plantar and posterior calcaneal spurs. Atherosclerotic calcifications are noted. IMPRESSION: 1. Findings consistent with a large hematoma along the lateral/anterior calf. Electronically signed by: Desiree Banks MD (01/26/2021 6:08 AM) [facility]
== END 2021-01-26 03:08 | disposition home or self-care (01) ==
LOC: ER 01:36
DX: S80.12XA Contusion of left lower leg, initial encounter (principal); I87.8 Other specified disorders of veins; I25.810 Atherosclerosis of coronary artery bypass graft(s) without angina pectoris; I13.0 Hypertensive heart and chronic kidney disease with heart failure and stage 1 through stage 4 chronic kidney disease, or unspecified chronic kidney disease; E11.22 Type 2 diabetes mellitus with diabetic chronic kidney disease; N18.9 Chronic kidney disease, unspecified; I50.9 Heart failure, unspecified; J44.9 Chronic obstructive pulmonary disease, unspecified; I25.2 Old myocardial infarction; Z86.718 Personal history of other venous thrombosis and embolism; Z87.891 Personal history of nicotine dependence; Z95.0 Presence of cardiac pacemaker; Z88.0 Allergy status to penicillin; W01.0XXA Fall on same level from slipping, tripping and stumbling without subsequent striking against object, initial encounter; Y93.89 Activity, other specified; Y92.89 Other specified places as the place of occurrence of the external cause; Y99.8 Other external cause status
CPT/HCPCS: 73590; 96374; 99284; J2270